=== PATIENT | female | born 1995 | race Caucasian/White ===

== ENCOUNTER 2020-08-14 04:57 | Inpatient (IN) | payer BC ==
--- NOTE | 2020-08-14 06:27 | ED ---
Anxiety HPI - General Chief Complaint: Anxiety Stated Complaint: Anxiety Time Seen by Provider: 08/14/20 06:03 Source: patient, RN notes reviewed, old records reviewed Mode of arrival: ambulatory - History of Present Illness Initial Comments: 25-year-old female presents emergency department today with complaints of anxiety and feeling unwell for the past 2 weeks. She feels that she's having a mental breakdown. She reports she's been under a lot of stress with being diagnosed with "a few weeks ago and not able to see her family as well as more stress at work. Patient states that she has been extremely stressed and feels like she cannot go on anymore. Patient states that she has active suicidal thoughts. She states that she doesn't ever have a history of severe anxiety or depression. She states that she's not able to eat or sleep. Patient states that she has not been prescribed any anxiety or depression medications the past. Patient denies emergency department somewhat tearful and shaking. - Related Data Home Medications: Home Medications Medication Instructions Recorded Confirmed Larin24 Fe 1 tab PO HS 08/14/20 08/14/20 Sinus Med (Unknown Otc) 1 tab PO DAILY 08/14/20 08/14/20 Allergies/Adverse Reactions: Allergies Allergy/AdvReac Type Severity Reaction Status Date / Time No Known Allergies Allergy Verified 08/14/20 07:32 Review of Systems ROS Statement: Those systems with pertinent positive or pertinent negative responses have been documented in the HPI. ROS Other: All systems not noted in ROS Statement are negative. Past Medical History Past Medical History: No Reported History History of Any Multi-Drug Resistant Organisms: None Reported Additional Past Surgical History / Comment(s): Dental Past Psychological History: No Psychological Hx Reported Smoking Status: Never smoker Past Alcohol Use History: Occasional Past Drug Use History: Marijuana General Exam - General Exam Comments Initial Comments: 25-year-old female. Alert and oriented 3. Limitations: no limitations General appearance: alert, in no apparent distress Head exam: Present: atraumatic, normocephalic, normal inspection Eye exam: Present: normal appearance, PERRL, EOMI. Absent: scleral icterus, conjunctival injection, periorbital swelling ENT exam: Present: normal exam, mucous membranes moist Neck exam: Present: normal inspection. Absent: tenderness, meningismus, lymphadenopathy Respiratory exam: Present: normal lung sounds bilaterally. Absent: respiratory distress, wheezes, rales, rhonchi, stridor Cardiovascular Exam: Present: regular rate, normal rhythm, normal heart sounds. Absent: systolic murmur, diastolic murmur, rubs, gallop, clicks GI/Abdominal exam: Present: soft, normal bowel sounds. Absent: distended, te nderness, guarding, rebound, rigid Extremities exam: Present: normal inspection, full ROM, normal capillary refill. Absent: tenderness, pedal edema, joint swelling, calf tenderness Back exam: Present: normal inspection Neurological exam: Present: alert, oriented X3, CN II-XII intact Psychiatric exam: Present: normal affect, normal mood Skin exam: Present: warm, dry, intact, normal color. Absent: rash Course Vital Signs 08/14/20 05:01 Temperature 98.2 F Pulse Rate 121 H Respiratory 16 Rate Blood Pressure 157/108 O2 Sat by Pulse 99 Oximetry Medical Decision Making - Medical Decision Making 25-year-old female presents with severe anxiety and concern for mental breakdown. Patient reports she can't eat or sleep. Patient denies any active suicidal thoughts. She was evaluated by EPS and determined the Patient should be admitted for mood stabilization. Patient will be admitted and transferred to psych facility at this time - Lab Data Lab Results 08/14/20 Range/Units 06:36 Urine Color Yellow Urine Appearance Clear (Clear) Urine pH 5.5 (5.0-8.0) Ur Specific [place] 1.013 (1.001-1.035) Urine Protein Negative (Negative) Urine Glucose (UA) Negative (Negative) Urine Ketones Negative (Negative) Urine Blood Negative (Negative) Urine Nitrite Negative (Negative) Urine Bilirubin Negative (Negative) Urine Urobilinogen <2.0 (<2.0) mg/dL Ur Leukocyte Esterase Negative (Negative) Urine Opiates Screen Not Detected (NotDetected) Ur Oxycodone Screen Not Detected (NotDetected) Urine Methadone Screen Not Detected (NotDetected) Ur Propoxyphene Screen Not Detected (NotDetected) Ur Barbiturates Screen Not Detected (NotDetected) U Tricyclic Antidepress Not Detected (NotDetected) Ur Phencyclidine Scrn Not Detected (NotDetected) Ur Amphetamines Screen Not Detected (NotDetected) U Methamphetamines Scrn Not Detected (NotDetected) U Benzodiazepines Scrn Not Detected (NotDetected) Urine Cocaine Screen Not Detected (NotDetected) U Marijuana (THC) Screen Not Detected (NotDetected) Disposition Clinical Impression: Anxiety, Depression Disposition: ADMITTED IP TO THIS [facility] Condition: Stable Instructions (If sedation given, give patient instructions): Generalized Anxiety Disorder (ED) Is patient prescribed a controlled substance at d/c from ED?: No Referrals: None,Stated [Primary Care Provider] - 1-2 days Time of Disposition: 09:14
[2020-08-14 06:58] LABS: Appearance,Urine Clear (Clear); Bilirubin,Urine Negative (Negative); Blood,Urine Negative (Negative); Color,Urine Yellow; Glucose,Urine (UA) Negative (Negative); Ketones,Urine Negative (Negative); Leukocyte Esterase,Urine Negative (Negative); Nitrite,Urine Negative (Negative); PH, Urine 5.5 (5.0-8.0); Protein,Urine Negative (Negative); Specific Gravity,Urine 1.013 (1.001-1.035); Urobilinogen,Urine <2.0 mg/dL (<2.0)
[2020-08-14] MEDS ORDERED: LORazepam 0.5 MG TAB PO ONE (07:00)
[2020-08-14 07:25] LABS: Amphetamine Screen,Urine Not Detected (NotDetected); Barbiturate Screen,Urine Not Detected (NotDetected); Benzodiazepines Screen,Urine Not Detected (NotDetected); Cocaine Screen,Urine Not Detected (NotDetected); Methadone Screen, Urine Not Detected (NotDetected); Opiate Screen,Urine Not Detected (NotDetected); Oxycodone Screen, Urine Not Detected (NotDetected); Phencyclidine Screen,Urine Not Detected (NotDetected); Tricyclic Antidepressant,Urine Not Detected (NotDetected); Urn Cannabinoid Scrn Not Detected (NotDetected)
[2020-08-14 09:20] VITALS: RESP 18
[2020-08-14] MEDS ORDERED: MAG HYDROX/AL HYDROX/SIMETH 30 ML CUP PO PRN (12:33)
[2020-08-14] MEDS ORDERED: MAGNESIUM HYDROXIDE 2,400 MG/10 ML CUP PO PRN (12:33)
[2020-08-14] MEDS ORDERED: ACETAMINOPHEN TAB 325 MG TAB PO PRN (12:33)
[2020-08-14] MEDS ORDERED: haloperidoL 1 MG TAB PO PRN (12:37)
[2020-08-14] MEDS ORDERED: HALOPERIDOL LACTATE 5 MG/ML 1 ML VIAL IM PRN (12:37)
[2020-08-14] MEDS: [UNRECOGNIZED DRUG - OTHER] PO SCH (20:57)
[2020-08-14] MEDS: hydrOXYzine pamoate 25 MG CAP PO PRN (21:50)
[2020-08-15 05:41] LABS: HCT 40.3 % (34.0-46.0); MCH 28.6 pg (25.0-35.0); MCHC 32.2 g/dL (31.0-37.0); MCV 88.9 fL (80.0-100.0); Mean Platelet Volume 8.2; Platelet Count 215 k/uL (150-450); RBC 4.53 m/uL (3.80-5.40); RDW 13.9 % (11.5-15.5); WBC 5.7 k/uL (3.8-10.6)
[2020-08-15 06:03] LABS: ALT 221 U/L (4-34); AST 134 U/L (14-36); African American GFR (CKD) >90 (>60 ml/min/1.73 sqM); Albumin 4.1 g/dL (3.5-5.0); Alkaline Phosphatase 115 U/L (38-126); Anion Gap 5 mmol/L; Blood Urea Nitrogen 8 mg/dL (7-17); Calcium 9.2 mg/dL (8.4-10.2); Carbon Dioxide 29 mmol/L (22-30); Chloride 106 mmol/L (98-107); Cholesterol 200 mg/dL (<200); Glucose 107 mg/dL (74-99); HDL Cholesterol 32 mg/dL (40-60); LDL Cholesterol,Calculated 113 mg/dL (0-99); Non-African American GFR(CKD) >90 (>60 ml/min/1.73 sqM); Potassium 4.6 mmol/L (3.5-5.1); Sodium 140 mmol/L (137-145); Total Protein 7.2 g/dL (6.3-8.2); Triglycerides 273 mg/dL (<150)
[2020-08-15 06:21] LABS: Band Neutrophils % 2 %; Lymphocytes # (M) 4.28 k/uL (1.0-4.8); Monocytes # (M) 0.51 k/uL (0-1.0); Neutrophils % (M) 14 %; Nucleated Red Blood Cells 0 /100 WBC (0-0); Total Cells Counted 100
[2020-08-15 06:33] LABS: Reactive Lymphocytes Present
[2020-08-15] MEDS: SERTRALINE 25 MG TAB PO SCH (10:17)
--- NOTE | 2020-08-15 11:37 | P.HP ---
Psychiatric H&P - . H&P Date: 08/15/20 History & Physical: IDENTIFYING DATA: Martha is a 25-year-old single female admitted to the psychiatric unit voluntarily with complaints of increasing anxiety and panic attacks. HISTORY OF PRESENT ILLNESS: She presented to the ED acutely distressed complaining about overwhelming and unmanageable anxiety. She described herself as an anxious person but is usually able to manage for anxiety with coping skills such as meditation, deep breathing or speaking with close friends. She described increasing anxiety beginning in July when she was diagnosed with COVID and self quarantined 14 days. The anxiety persisted after the self quarantine. She described periods of increasing anxiety that crescendo to where she feels that she would lose control. During the extreme episodes of anxiety she experienced chest pain, increased headache and nausea. She feels hopeless over her inability to control his anxiety but denied feelings of hopelessness or worthlessness. She specifically denied experiencing suicidal ideation or wishes. She denied history of suicide attempts, gestures or nonlethal self-harm. She has increased difficulty with falling asleep and maintaining sleep. She often feels fatigued in the morning to the point where she has difficulty concentrating and attending work. She described having decreased ability to enjoy herself. She believes that she lost about 5 pounds over the last week. She attributes her depression and anxiety to increasing stress from working 40 hours per week plus attending [employer]. She is working towards a bachelor's degree in human resources. She is most distressed about difficulties with her finance class. She denied experiencing obsessions or compulsions. She denied history of eating problems or self-induced vomiting. She denied history of psychotic symptoms suc h as hallucinations, paranoia or confusion. She smokes marijuana usually at night to "help me sleep." She also takes Adderall intermittently that she obtains from "friends". She denied that friends or family have expressed concern to her about her use of marijuana or Adderall. PAST PSYCHIATRIC HISTORY: She has no history of mental health treatment. She had no prior psychiatric hospitalizations. PAST MEDICAL HISTORY: She denied major medical problems. ALLERGIES: Drug ALLERGIES SUBSTANCE USE HISTORY: She denied history of substance abuse treatment. She denied use of cocaine, methamphetamine, heroin or oral opioid pain medications. FAMILY PSYCHIATRIC/SUBSTANCE USE HISTORY: She believes that her mother has a history of depression. LEGAL HISTORY: She denied a history of legal problems. SOCIAL HISTORY: She is born and raised in [facility]. She graduated high school. She's been working in her current job for one half years. She is single and has no children. MENTAL STATUS EXAM: She presented as a stocky 25-year-old female who was pleasant on approach. She made eye contact and attended to the interview. She had no distinguishing features or prominent physical abnormalities. She had a distressed facial expression. She was alert and oriented to person, place and time. She showed no abnormality of psychomotor activity. Her gait was steady. Her affect was markedly depressed and anxious. She denied suicidal ideation, wishes homicidal ideation. She expressed feelings of helplessness but denied helplessness or worthlessness. She ruminated about her anxiety, stress and the physical symptoms of anxiety. She did not express ideas reference, paranoid ideation or delusions. Her thinking was abstract and associations were coherent, logical and goal directed. She denied hallucinations and did not appear to be responding to internal stimuli. Global impression of intellect is average. She is aware of illness and need for treatment. STRENGTHS: Physical health, stable housing, stable employment, stable income, supportive friends and family WEAKNESSES: Anxiety and stress over employment and college IMPRESSION: She is a 25-year-old single female presented to the psychiatric unit voluntarily with complaints of increasing anxiety, panic attacks and depression. She is greatly distressed that she is unable to control her anxiety and perseverated about her somatic anxiety symptoms, anhedonia, impaired concentration and impaired sleep. She appears to experience panic attacks and persistent anxiety in addition to depression depressive symptoms. She is no history of mental health treatment or psychiatric hospitalizations. She would benefit from an antidepressant medication and a referral for individual psychotherapy. PRINCIPLE DIAGNOSIS: Major depressive disorder moderate with anxious distress, rule out panic disorder, rule out general anxiety disorder, cannabis use disorder, rule out amphetamine use disorder RECOMMENDATION: Admitted to the psychiatric unit. See precautions. Consult medicine for initial physical exam and medical history. shafting worker completed initial psychosocial assessment and coordinate discharge and aftercare. Begin sertraline 25 mg daily and titrated according to clinical response and tolerance. Ativan when necessary for anxiety. Encourage participation in therapeutic groups and activities. Evaluate clinical status response to treatment daily basis. Allergies Allergy/AdvReac Type Severity Reaction Status Date / Time No Known Allergies Allergy Verified 08/14/20 07:32 Vital Signs Temp 98.7 F 08/14/20 16:14 Pulse 124 H 08/14/20 22:58 Resp 18 08/14/20 22:58 BP 132/91 08/14/20 22:58 Pulse Ox 99 08/14/20 14:35 Intake & Output 08/14/20 08/15/20 08/15/20 18:59 06:59 18:59 Weight 84.822 kg Laboratory Last Values WBC 5.7 k/uL (3.8-10.6) 08/15/20 05:10 RBC 4.53 m/uL (3.80-5.40) 08/15/20 05:10 Hgb 13.0 gm/dL (11.4-16.0) 08/15/20 05:10 Hct 40.3 % (34.0-46.0) 08/15/20 05:10 MCV 88.9 fL (80.0-100.0) 08/15/20 05:10 MCH 28.6 pg (25.0-35.0) 08/15/20 05:10 MCHC 32.2 g/dL (31.0-37.0) 08/15/20 05:10 RDW 13.9 % (11.5-15.5) 08/15/20 05:10 Plt Count 215 k/uL (150-450) 08/15/20 05:10 MPV 8.2 08/15/20 05:10 Neutrophils % (Manual) 14 % 08/15/20 05:10 Band Neuts % (Manual) 2 % 08/15/20 05:10 Lymphocytes % (Manual) 75 % 08/15/20 05:10 Monocytes % (Manual) 9 % 08/15/20 05:10 Neutrophils # (Manual) 0.90 k/uL (1.3-7.7) L 08/15/20 05:10 Lymphocytes # (Manual) 4.28 k/uL (1.0-4.8) 08/15/20 05:10 Monocytes # (Manual) 0.51 k/uL (0-1.0) 08/15/20 05:10 Nucleated RBCs 0 /100 WBC (0-0) 08/15/20 05:10 Differential Comment 08/15/20 05:10 Manual Slide Review Performed 08/15/20 05:10 Reactive Lymphocytes Present 08/15/20 05:10 Sodium 140 mmol/L (137-145) 08/15/20 05:10 Potassium 4.6 mmol/L (3.5-5.1) 08/15/20 05:10 Chloride 106 mmol/L (98-107) 08/15/20 05:10 Carbon Dioxide 29 mmol/L (22-30) 08/15/20 05:10 Anion Gap 5 mmol/L 08/15/20 05:10 BUN 8 mg/dL (7-17) 08/15/20 05:10 Creatinine 0.78 mg/dL (0.52-1.04) 08/15/20 05:10 Est GFR (CKD-EPI)AfAm >90 (>60 ml/min/1.73 sqM) 08/15/20 05:10 Est GFR (CKD-EPI)NonAf >90 (>60 ml/min/1.73 sqM) 08/15/20 05:10 Glucose 107 mg/dL (74-99) H 08/15/20 05:10 Calcium 9.2 mg/dL (8.4-10.2) 08/15/20 05:10 Total Bilirubin 1.0 mg/dL (0.2-1.3) 08/15/20 05:10 AST 134 U/L (14-36) H 08/15/20 05:10 ALT 221 U/L (4-34) H 08/15/20 05:10 Alkaline Phosphatase 115 U/L (38-126) 08/15/20 05:10 Total Protein 7.2 g/dL (6.3-8.2) 08/15/20 05:10 Albumin 4.1 g/dL (3.5-5.0) 08/15/20 05:10 Triglycerides 273 mg/dL (<150) H 08/15/20 05:10 Cholesterol 200 mg/dL (<200) H 08/15/20 05:10 LDL Cholesterol, Calc 113 mg/dL (0-99) H 08/15/20 05:10 HDL Cholesterol 32 mg/dL (40-60) L 08/15/20 05:10 TSH 2.090 mIU/L (0.465-4.680) 08/15/20 05:10 Urine Color Yellow 08/14/20 06:36 Urine Appearance Clear (Clear) 08/14/20 06:36 Urine pH 5.5 (5.0-8.0) 08/14/20 06:36 Ur Specific [place] 1.013 (1.001-1.035) 08/14/20 06:36 Urine Protein Negative (Negative) 08/14/20 06:36 Urine Glucose (UA) Negative (Negative) 08/14/20 06:36 Urine Ketones Negative (Negative) 08/14/20 06:36 Urine Blood Negative (Negative) 08/14/20 06:36 Urine Nitrite Negative (Negative) 08/14/20 06:36 Urine Bilirubin Negative (Negative) 08/14/20 06:36 Urine Urobilinogen <2.0 mg/dL (<2.0) 08/14/20 06:36 Ur Leukocyte Esterase Negative (Negative) 08/14/20 06:36 Urine HCG, Qual Not Detected (Not Detectd) 08/14/20 06:36 Urine Opiates Screen Not Detected (NotDetected) 08/14/20 06:36 Ur Oxycodone Screen Not Detected (NotDetected) 08/14/20 06:36 Urine Methadone Screen Not Detected (NotDetected) 08/14/20 06:36 Ur Propoxyphene Screen Not Detected (NotDetected) 08/14/20 06:36 Ur Barbiturates Screen Not Detected (NotDetected) 08/14/20 06:36 U Tricyclic Antidepress Not Detected (NotDetected) 08/14/20 06:36 Ur Phencyclidine Scrn Not Detected (NotDetected) 08/14/20 06:36 Ur Amphetamines Screen Not Detected (NotDetected) 08/14/20 06:36 U Methamphetamines Scrn Not Detected (NotDetected) 08/14/20 06:36 U Benzodiazepines Scrn Not Detected (NotDetected) 08/14/20 06:36 Urine Cocaine Screen Not Detected (NotDetected) 08/14/20 06:36 U Marijuana (THC) Screen Not Detected (NotDetected) 08/14/20 06:36 08/15/20 11:21
[2020-08-15 14:44] LABS: Hemoglobin A1C 5.2 % (4.0-6.0)
[2020-08-15] MEDS: [UNRECOGNIZED DRUG - OTHER] PO SCH (21:14)
[2020-08-15] MEDS: hydrOXYzine pamoate 25 MG CAP PO PRN ×2 (21:15→22:40)
--- NOTE | 2020-08-16 01:41 | P.CONS ---
History of Present Illness - Reason for Consult Consult date: 08/15/20 - History of Present Illness Patient was seen with the industrial psychologist present at all times. Patient is a 25-year-old female with a PMH of anxiety disorder who presented to the emergency room with a panic attack. The patient was admitted to the mental health unit where she was seen and evaluated. Patient notes feeling signific antly better since her admission, and feels as though she is back to her baseline. She denied any active complaints at time of interview. She denied any additional anxiety. Denied chest pain, shortness of, chills, cough, fever, chills, nausea, vomiting, dizziness, headaches, or diarrhea. The patient's laboratory evaluation from the emergency room was reviewed, remarkable for AST 134 and ALT 221. Review of Systems Pertinent positives and negatives as discussed in HPI, a complete review of systems was performed and all other systems are negative. Past Medical History Past Medical History: No Reported History History of Any Multi-Drug Resistant Organisms: None Reported Additional Past Surgical History / Comment(s): Dental Past Psychological History: No Psychological Hx Reported Smoking Status: Never smoker Past Alcohol Use History: Occasional Past Drug Use History: Marijuana Medications and Allergies Home Medications Medication Instructions Recorded Confirmed Type Larin24 Fe 1 tab PO HS 08/14/20 08/14/20 History Sinus Med (Unknown Otc) 1 tab PO DAILY 08/14/20 08/14/20 History Allergies Allergy/AdvReac Type Severity Reaction Status Date / Time No Known Allergies Allergy Verified 08/14/20 07:32 Physical Exam Vitals: Vital Signs Temp 08/15/20 18:05 97.9 F General: non toxic, no distress, appears at stated age, obese Derm: no unusual rashes/lesions no unusual ecchymoses, warm, dry Head: atraumatic, normocephalic, symmetric Eyes: EOMI, no lid lag, anicteric sclera, pupils equal round reactive to light ENT: Nose and ears atraumatic, no thrush, no pharyngeal erythema Neck: No thyromegaly, no cervical lymphadenopathy, trachea midline, supple Mouth: no lip lesion, mucus membranes moist Cardiovascular: S1S2 reg, no murmur, positive posterior tibial pulse bilateral, no edema, capillary refill less than 2 seconds Lungs: CTA bilateral, no rhonchi, no rales , no accessory muscle use Abdominal: soft, nontender to palpation, no guarding, no appreciable organomegaly, normal bowel sounds Ext: no gross muscle atrophy, muscle strength 5 out of 5 in all 4 extremities grossly, no contractures, Neuro: CN II-XI grossly intact, light touch intact all 4 extremities, finger to nose within normal limits, Psych: Alert, oriented, appropriate affect Results CBC & Chem 7: 08/15/20 05:10 08/15/20 05:10 Labs: Abnormal Lab Results - Last 24 Hours (Table) 08/15/20 08/15/20 Range/Units 05:10 05:10 Neutrophils # (Manual) 0.90 L (1.3-7.7) k/uL Glucose 107 H (74-99) mg/dL AST 134 H (14-36) U/L ALT 221 H (4-34) U/L Triglycerides 273 H (<150) mg/dL Cholesterol 200 H (<200) mg/dL LDL Cholesterol, Calc 113 H (0-99) mg/dL HDL Cholesterol 32 L (40-60) mg/dL Assessment and Plan Plan: Anxiety and panic disorder -As per psychiatry Abnormal LFTs -Repeat in a.m. -If fail to resolve, patient should be advised to obtain repeat LFTs with her PMD as an outpatient Thank you for allowing us to participate in the care of this patient. We will follow peripherally. Do not hesitate to contact us with questions. Someone can be reached from the [facility] hospitalist group at all hours of the day at [phone].
[2020-08-16 06:01] VITALS: BP 122/70; PULSE 76; TEMP 97.7
[2020-08-16] MEDS: SERTRALINE 25 MG TAB PO SCH (08:26)
[2020-08-16 10:17] LABS: ALT 213 U/L (4-34); AST 127 U/L (14-36); African American GFR (CKD) >90 (>60 ml/min/1.73 sqM); Albumin 4.4 g/dL (3.5-5.0); Alkaline Phosphatase 127 U/L (38-126); Anion Gap 7 mmol/L; Blood Urea Nitrogen 8 mg/dL (7-17); Calcium 9.4 mg/dL (8.4-10.2); Carbon Dioxide 27 mmol/L (22-30); Chloride 104 mmol/L (98-107); Glucose 111 mg/dL (74-99); Non-African American GFR(CKD) >90 (>60 ml/min/1.73 sqM); Potassium 4.7 mmol/L (3.5-5.1); Sodium 138 mmol/L (137-145); Total Bilirubin 1.1 mg/dL (0.2-1.3); Total Protein 7.8 g/dL (6.3-8.2)
--- NOTE | 2020-08-16 11:02 | P.DS ---
Providers Date of admission: 08/14/20 12:08 Attending physician: Dudley Fry MD Consults: 08/14/20 12:33 Consult Physician Routine Consulting Provider: Dena Physician Consult Reason/Comments: Medical management Do you want consulting provider notified?: Yes Primary care physician: Stated None - Discharge Diagnosis(es) (1) Major depressive disorder, single episode with anxious distress Current Visit: Yes Status: Acute Priority: Medium (2) Panic attacks Current Visit: Yes Status: Acute Priority: High (3) Elevated liver function tests Current Visit: Yes Status: Acute Priority: Medium (4) Hypercholesterolemia Current Visit: Yes Status: Chronic Priority: Medium Hospital Course: HISTORY: Martha is a 25-year-old single female admitted to the psychiatric unit voluntarily with complaints of increasing anxiety and panic attacks. She presented to the ED acutely distressed complaining about overwhelming and unmanageable anxiety. She described herself as an anxious person but is usually able to manage for anxiety with coping skills such as meditation, deep breathing or speaking with close friends. She described increasing anxiety beginning in July when she was diagnosed with COVID and self quarantined 14 days. The anxiety persisted after the self quarantine. She described periods of increasing anxiety that crescendo to where she feels that she would lose control . During the extreme episodes of anxiety she experienced chest pain, increased headache and nausea. She feels hopeless over her inability to control his anxiety but denied feelings of hopelessness or worthlessness. She specifically denied experiencing suicidal ideation or wishes. She denied history of suicide attempts, gestures or nonlethal self-harm. She has increased difficulty with falling asleep and maintaining sleep. She often feels fatigued in the morning to the point where she has difficulty concentrating and attending work. She described having decreased ability to enjoy herself. She believes that she lost about 5 pounds over the last week. She attributes her depression and anxiety to increasing stress from working 40 hours per week plus attending [employer] She is working towards a bachelor's degree in human resources. She is most distressed about difficulties with her finance class. She denied experiencing obsessions or compulsions. She denied history of eating problems or self-induced vomiting. She denied history of psychotic symptoms such as hallucinations, paranoia or confusion. She smokes marijuana usually at night to "help me sleep." She also takes Adderall intermittently that she obtains from "friends". She denied that friends or family have expressed concern to her about her use of marijuana or Adderall. She has no history of mental health treatment. She had no prior psychiatric hospitalizations. HOSPITAL COURSE: We admitted her to psychiatric unit under care of this technical writer and editor. We provided a copy a biopsychosocial assessment. The product marketing consultant truck crane operator completed initial physical exam and diagnosed elevated liver function tests and elevated cholesterol and triglycerides. Her repeat the function tests were likewise elevated and the truck crane operator recommended follow-up with her primary care provider. We treated her anxiety and anxiety symptoms with a combination of Vistaril and Zoloft. She had no episodes of agitation or behavioral dyscontrol. She denied suicidal ideation and wishes throughout his brief hospitalization. We discussed aftercare and she agreed to referral for outpatient individual psychotherapy. MENTAL STATUS ON DISCHARGE: he presented as a stocky 25-year-old female who was pleasant on approach. She made eye contact and attended to interview. She had no distinguishing features or prominent physical abnormalities. She had no abnormality of psychomotor activity. His speech was spontaneous with normal rate, rhythm and volume. Affect was anxious but stable and appropriate. She denied suicidal ideation and wishes. She denied homicidal ideation. She denied feeling hopeless, helpless or worthless. She did not express ideas reference, paranoid ideation or delusions. Her thinking was abstract and associations were coherent, logical and goal directed. She denied hallucinations and did not appear to be responding to internal stimuli. DISPOSITION: she will return to her former address. She has a follow-up appointment with a outpatient mental health clinic in [facility] 08/27/2020. Her discharge medications were Zoloft 50 mg daily (30 tablets) and Vistaril 50 mg at bedtime when necessary for sleep (30 tablets). Patient Condition at Discharge: Stable Plan - Discharge Summary New Discharge Prescriptions: New hydrOXYzine pamoate [Vistaril] 50 mg PO HS PRN #30 cap PRN Reason: insomnia Sertraline [Zoloft] 50 mg PO DAILY #30 tab Continue Larin24 Fe 1 tab PO HS Sinus Med (Unknown Otc) 1 tab PO DAILY Discharge Medication List Larin24 Fe 1 tab PO HS 08/14/20 [History] Sinus Med (Unknown Otc) 1 tab PO DAILY 08/14/20 [History] Sertraline [Zoloft] 50 mg PO DAILY #30 tab 08/16/20 [Rx] hydrOXYzine pamoate [Vistaril] 50 mg PO HS PRN #30 cap 08/16/20 [Rx] Follow up Appointment(s)/Referral(s): PsychiatryMartha [Other] - 08/27/20 4:15 pm (appointment will be done Telehealth check email for directions call within 24 hours of d/c to verify appointment ) None,Stated [Primary Care Provider] - 1-2 days Patient Instructions/Handouts: Generalized Anxiety Disorder (ED) Activity/Diet/Wound Care/Special Instructions: Activity and diet as tolerated. Avoid the use of street drugs and alcohol. Take all medications as prescribed. When you are in need of refills on your medications please contact your medical provider and/or outpatient psychiatrist to have this done. Please go to scheduled outpatient appointment for aftercare treatment. If symptoms return or become worse, call the crisis line at and/or go to the nearest emergency room for evaluation. Discharge Disposition: HOME SELF-CARE
[2020-08-17] MEDS ORDERED: SERTRALINE 50 MG TAB PO SCH (09:00)
== END 2020-08-16 13:30 | disposition home or self-care (01) | DRG 885 ==
LOC: EC 04:57 → 3MHU 12:08
PROVIDERS: ADMIT Psychiatry & Neurology Psychiatry; ATTEND Psychiatry & Neurology Psychiatry
DX: F32.1 Major depressive disorder, single episode, moderate (principal); R45.851 Suicidal ideations; F41.0 Panic disorder [episodic paroxysmal anxiety]; E78.00 Pure hypercholesterolemia, unspecified; R94.5 Abnormal results of liver function studies; Z86.19 Personal history of other infectious and parasitic diseases; Z81.8 Family history of other mental and behavioral disorders
CPT/HCPCS: 80053; 80061; 80306; 81003; 81025; 82075; 83036; 84443; 85025; 99285